=== PATIENT | female | born 1995 | race African-American/Black ===

== ENCOUNTER 2017-12-02 18:57 | Emergency (ER) | payer OTHER ==
--- NOTE | 2017-12-02 19:31 | PDOC ---
Rapid Medical Evaluation Time Seen by Provider: 12/02/17 19:30 Medical Evaluation: Allergies Allergy/AdvReac Type Severity Reaction Status Date / Time No Known Allergies Allergy Verified 12/02/17 19:29 12/02/17 19:30 Pt c/o: sinus pressure and itchy eyes x 2 days Pt on brief exam: vss Pt ordered for: none Pt to proceed to the ED Discharge Disposition - Diagnosis Sinus pressure - Referrals - Patient Instructions - Post Discharge Activity
[2017-12-02 19:33] VITALS: BP 155/105; PULSE 91; TEMP 98.5; BMI 37.1
--- NOTE | 2017-12-02 19:53 | PDOC ---
History of Present Illness - General Chief Complaint: Headache Stated Complaint: COLD SYMPTOMS Time Seen by Provider: 12/02/17 19:30 History Source: Patient Exam Limitations: No Limitations Past History - Travel Traveled outside of the country in the last 30 days: No Close contact w/someone who was outside of country & ill: No - Past Medical History Allergies/Adverse Reactions: Allergies Allergy/AdvReac Type Severity Reaction Status Date / Time No Known Allergies Allergy Verified 12/02/17 19:29 Home Medications: Ambulatory Orders Labetalol HCl [Normodyne -] 100 mg PO BID 08/16/14 Fluticasone Prop 0.05% Nasal [Flonase -] 1 - 2 spray NS DAILY #1 spray.pump 05/12 Ibuprofen 800 mg PO TID #30 tablet 12/02/17 Ketotifen Fumarate [Zaditor] 5 ml OP BID #100 drops 12/02/17 Loratadine [Claritin -] 10 mg PO DAILY #30 tablet 12/02/17 Asthma: No Cancer: No Cardiac Disorders: No Diabetes: No HTN: No Seizures: No Thyroid Disease: No - Suicide/Smoking/Psychosocial Hx Smoking History: Never smoked Have you smoked in the past 12 months: No Hx Alcohol Use: No Drug/Substance Use Hx: No Hx Substance Use Treatment: No Review of Systems - Review of Systems Able to Perform ROS?: Yes Comments:: 12/02/17 19:53 CONSTITUTIONAL: Absent: fever, chills, diaphoresis, generalized weakness, malaise, loss of appetite HEENT: Absent: rhinorrhea, nasal congestion, throat pain, throat swelling, difficulty swallowing, mouth swelling, ear pain, eye pain, visual Changes CARDIOVASCULAR: Absent: chest pain, loss of consciousness, palpitations, irregular heart rate, peripheral edema RESPIRATORY: Absent: cough, shortness of breath, dyspnea with exertion, orthopnea, wheezing, stridor, hemoptysis GASTROINTESTINAL: Absent: abdominal pain, abdominal distension, nausea, vomiting, diarrhea, constipation, melena, hematochezia GENITOURINARY: Absent: dysuria, frequency, urgency, hesitancy, hematuria, flank pain, genital pain MUSCULOSKELETAL: Absent: myalgia, arthralgia, joint swelling SKIN: Absent: rash, itching, pallor HEMATOLOGIC/IMMUNOLOGIC: Absent: easy bleeding, easy bruising, lymphadenopathy, frequent infections ENDOCRINE: Absent: unexplained weight gain, unexplained weight loss, heat intolerance, cold intolerance NEUROLOGIC: Absent: headache, focal weakness or paresthesias, dizziness, unsteady gait, seizure, mental status changes, bladder or bowel incontinence PSYCHIATRIC: Absent: anxiety, depression, suicidal or homicidal ideation, hallucinations. Is the patient limited Serbian proficient: No *Physical Exam - Vital Signs Last Vital Signs Temp Pulse Resp BP Pulse Ox 98.5 F 91 H 20 155/105 100 12/02/17 19:29 12/02/17 19:29 12/02/17 19:29 12/02/17 19:29 12/02/17 19:29 - Physical Exam Comments: 12/02/17 19:53 GENERAL: Well developed, well nourished. Awake and alert. No acute distress. HEENT: Normocephalic, atraumatic. PERRLA, EOMI. No conjunctival pallor. Sclera are non- icteric. Moist mucous membranes. Oropharynx is clear. NECK: Supple. Full ROM. No JVD. Carotid pulses 2+ and symmetric, without bruits. No thyromegaly. No lymphadenopathy. CARDIOVASCULAR: Regular rate and rhythm. No murmurs, rubs, or gallops. Distal pulses are 2+ and symmetric. PULMONARY: No evidence of respiratory distress. Lungs clear to auscultation bilaterally. No wheezing, rales or rhonchi. ABDOMINAL: Soft. Non-tender. Non-distended. No rebound or guarding. No organomegaly. Normoactive bowel sounds. MUSCULOSKELETAL Normal range of motion at all joints. No bony deformities or tenderness. No CVA tenderness. EXTREMITIES: No cyanosis. No clubbing. No edema. No calf tenderness. SKIN: Warm and dry. Normal capillary refill. No rashes. No jaundice. NEUROLOGICAL: Alert, awake, appropriate. Cranial nerves 2-12 intact. No deficits to light touch and temperature in face, upper extremities and lower extremities. No motor deficits in the in face, upper extremities and lower extremities. Normoreflexic in the upper and lower extremities. Normal speech. Toes are down- going bilaterally. Gait is normal without ataxia. PSYCHIATRIC: Cooperative. Good eye contact. Appropriate mood and affect. *DC/Admit/Observation/Transfer Diagnosis at time of Disposition: Allergic rhinitis Qualifiers: Allergic rhinitis trigger: unspecified Allergic rhinitis seasonality: unspecified seasonality Qualified Code(s): J30.9 - Allergic rhinitis, unspecified Headache Qualifiers: Headache type: unspecified Headache chronicity pattern: acute headache Intractability: not intractable Qualified Code(s): R51 - Headache - Discharge Dispostion Disposition: HOME Condition at time of disposition: Stable Decision to Admit order: No - Referrals Referrals: Nadeem Avalos MD [Staff Physician] - - Patient Instructions Printed Discharge Instructions: DI for Allergic Rhinitis Additional Instructions: Please take Claritin daily for ALLERGIES. Please use the nasal spray twice a day to help with her congestion. Please Zaditor drops to help with her itchy eyes. Resolve with her primary care doctor Return to the emergency department if you have fevers, chills, worsening symptoms, or have any changes in her symptoms. - Post Discharge Activity Forms/Work/School Notes: Back to Work
[2017-12-02] MEDS ORDERED: IBUPROFEN 400 MG TABLET (FP) PO ONE ×2 (20:12→20:30)
== END 2017-12-02 21:12 | disposition home or self-care (01) ==
LOC: JERFT 18:57
DX: J30.9 Allergic rhinitis, unspecified (principal); R51 Headache
CPT/HCPCS: 99281-25

== ENCOUNTER 2018-08-06 10:26 | Emergency (ER) | payer OTHER ==
[2018-08-06 10:38] VITALS: BP 149/99; PULSE 94; TEMP 98.5; BMI 32.3
--- NOTE | 2018-08-06 11:37 | PDOC ---
History of Present Illness - General Chief Complaint: Sore Throat Stated Complaint: SORE THROAT Time Seen by Provider: 08/06/18 11:01 History Source: Patient Exam Limitations: No Limitations - History of Present Illness Initial Comments: 08/06/18 patient came to emergency department with complaints of sore throat pain on and off for the past 4-5 days. States felt feverish a couple days ago has been using ibuprofen with some pain relief. States suffers from strep infections and worries has the same. Severity: mild Associated Symptoms: reports: cough, fever/chills, headaches, malaise Past History - Travel Traveled outside of the country in the last 30 days: No Close contact w/someone who was outside of country & ill: No - Past Medical History Allergies/Adverse Reactions: Allergies Allergy/AdvReac Type Severity Reaction Status Date / Time No Known Allergies Allergy Verified 12/02/17 19:29 Home Medications: Ambulatory Orders Labetalol HCl [Normodyne -] 100 mg PO BID 08/16/14 Fluticasone Prop 0.05% Nasal [Flonase -] 1 - 2 spray NS DAILY #1 spray.pump 05/12 Ibuprofen 800 mg PO TID #30 tablet 12/02/17 Ketotifen Fumarate [Zaditor] 5 ml OP BID #100 drops 12/02/17 Loratadine [Claritin -] 10 mg PO DAILY #30 tablet 12/02/17 Azithromycin [Zithromax -] 250 mg PO UTDICT #6 tab 08/06/18 Asthma: No Cancer: No Cardiac Disorders: No COPD: No Diabetes: No HTN: No Seizures: No Thyroid Disease: No - Immunization History Immunization Up to Date: Yes - Suicide/Smoking/Psychosocial Hx Smoking History: Never smoked Have you smoked in the past 12 months: No Hx Alcohol Use: No Drug/Substance Use Hx: No Hx Substance Use Treatment: No Review of Systems - Review of Systems Able to Perform ROS?: Yes Is the patient limited Kinyarwanda proficient: Yes Constitutional: Yes: Symptoms Reported, See HPI, Malaise. No: Fever HEENTM: Yes: Symptoms Reported, See HPI, Nose Congestion, Throat Pain, Throat Swelling, Difficulty Swallowing Respiratory: Yes: See HPI. No: Symptoms reported, Cough ABD/GI: Yes: See HPI. No: Symptoms Reported Neurological: No: Symptoms reported All Other Systems: Reviewed and Negative *Physical Exam - Vital Signs Last Vital Signs Temp Pulse Resp BP Pulse Ox 98.5 F 94 H 16 149/99 100 08/06/18 10:34 08/06/18 10:34 08/06/18 10:34 08/06/18 10:34 08/06/18 10:34 - Physical Exam General Appearance: Yes: Nourished, Appropriately Dressed, Apparent Distress HEENT: positive: PENNY, Normal ENT Inspection, TMs Normal, Pharynx Normal, Pharyngeal Erythema, Tonsillar Erythema, Rhinorrhea. negative: Tonsillar Exudate Neck: positive: Supple, Lymphadenopathy (R), Lymphadenopathy (L), Other. negative: Tender Respiratory/Chest: positive: Normal Breath Sounds Extremity: positive: Normal Capillary Refill, Normal Inspection Integumentary: positive: Normal Color, Dry, Warm, Pale Neurologic: positive: jigger artisan II-XII NML intact, Fully Oriented, Alert, Normal Mood/ Affect, Normal Response, Motor Strength 5/5 Moderate Sedation - Procedure Monitoring Vital Signs: Procedure Monitoring Vital Signs Temperature 98.5 F 08/06/18 10:34 Pulse Rate 94 H 08/06/18 10:34 Respiratory Rate 16 08/06/18 10:34 Blood Pressure 149/99 08/06/18 10:34 O2 Sat by Pulse Oximetry (%) 100 08/06/18 10:34 Medical Decision Making - Medical Decision Making 08/06/18 14:21 Rapid strep test positive, will treat with azithromycin *DC/Admit/Observation/Transfer Diagnosis at time of Disposition: Streptococcal pharyngitis - Discharge Dispostion Disposition: HOME Condition at time of disposition: Stable - Prescriptions Prescriptions: Azithromycin [Zithromax -] 250 mg PO CODICT #6 tab - Referrals - Patient Instructions Printed Discharge Instructions: DI for Strep Throat Additional Instructions: Rest, drink lots of fluids: Teas, water, soups Eat cold things: Ice cream, ice pops, ice chips Saltwater gargles Steamy showers/seem to face break up mucus Avoid contact with others until fevers and pain resolved Lots of handwashing and good hygiene, this is contagious Azithromycin as directed Tylenol or Motrin for fever and pain Followup with private physician in one to 2 days as needed if not improving Return to emergency department for worsened symptoms, fevers, dehydration - Post Discharge Activity Forms/Work/School Notes: Back to Work
== END 2018-08-06 12:18 | disposition home or self-care (01) ==
LOC: JERFT 10:26
DX: J02.0 Streptococcal pharyngitis (principal); B95.0 Streptococcus, group A, as the cause of diseases classified elsewhere
CPT/HCPCS: 87880; 99281-25

== ENCOUNTER 2021-09-30 22:55 | Emergency (ER) | payer OTHER ==
[2021-09-30 23:02] VITALS: BP 152/98; PULSE 76; TEMP 97.7; BMI 40.7
[2021-09-30 23:35] LABS: BASO % 0.5 % (0-2.0); EOS % 4.8 % (0-4.5); HEMATOCRIT 38.2 % (32.4-45.2); LYMPH % 28.9 % (8-40); MCH 28.6 pg (25.7-33.7); MCHC 34.1 g/dl (32.0-36.0); MEAN CELL VOLUME 83.8 fl (80-96); MEAN PLT VOLUME 8.1 fl (7.5-11.1); MONO % 6.2 % (3.8-10.2); NEUT % 59.6 % (42.8-82.8); PLATELET COUNT 220 10^3/uL (134-434); RBC 4.56 M/mm3 (3.60-5.2); WHITE BLOOD COUNT 6.8 K/mm3 (4.0-10.0)
[2021-09-30 23:57] LABS: CALCIUM 8.6 mg/dL (8.5-10.1)
[2021-09-30 23:58] LABS: ALBUMIN 3.8 g/dl (3.4-5.0); BLOOD UREA NITROGEN 13.4 mg/dL (7-18)
[2021-10-01] LABS: INR 1.05 (0.83-1.09); PROTHROMBIN TIME (PATIENT) 12.1 SEC (9.7-13.0)
[2021-10-01 00:01] LABS: CREATININE 0.8 mg/dL (0.55-1.3)
[2021-10-01 00:03] LABS: ACTIVATED PTT 34.1 SECONDS (25.2-36.5); BILIRUBIN,TOTAL 0.2 mg/dL (0.2-1); TOT PROT 7.6 g/dl (6.4-8.2)
[2021-10-01] MEDS ORDERED: KETOROLAC TROMETHAMINE 15 MG/ML VIAL ONE (02:37)
[2021-10-01] MEDS ORDERED: KETOROLAC TROMETHAMINE 15 MG/ML VIAL IVPUSH ONE (02:37)
== END 2021-10-01 02:45 | disposition home or self-care (01) ==
LOC: JER 22:55
PROC: 3E0333Z Introduction of Anti-inflammatory into Peripheral Vein, Percutaneous Approach (ICD-10-PCS; principal; 2021-09-30)
DX: R07.9 Chest pain, unspecified (principal)
CPT/HCPCS: 36415; 71046-TC-FY; 80053; 83735; 84484; 85025; 85379; 85610; 85730; 93005; 93010; 99285-25

== ENCOUNTER 2022-08-26 20:28 | Emergency (ER) | payer OTHER ==
[2022-08-26 20:43] VITALS: RESP 19; BMI 40.7
[2022-08-26] MEDS ORDERED: DEXAMETHASONE SOD PHOSPHATE 10 MG/1 ML VIAL IM ONE (23:12)
[2022-08-26] MEDS ORDERED: DEXAMETHASONE SOD PHOSPHATE 10 MG/1 ML VIAL ONE (23:30)
[2022-08-26 23:43] VITALS: BP 153/100; PULSE 93; TEMP 97.4
== END 2022-08-26 23:44 | disposition home or self-care (01) ==
LOC: JERFT 20:28
PROC: 3E0233Z Introduction of Anti-inflammatory into Muscle, Percutaneous Approach (ICD-10-PCS; principal; 2022-08-26)
DX: J02.9 Acute pharyngitis, unspecified (principal)
CPT/HCPCS: 0241U-QW; 36415; 87651; 99284-25; J1100